=== PATIENT | male | born 1990 | race Caucasian/White ===

== ENCOUNTER 2019-05-17 21:03 | Emergency (ER) | payer SELFPAY ==
[~2019-05-17] VITALS: Ht 180.3 cm; Wt 77.1 kg
[2019-05-17 21:05] VITALS: BP 153/90
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
[2019-05-17 21:10] VITALS: BP 153/90
--- NOTE | 2019-05-17 21:15 | NUR ---
DR. WORLEY BEDSIDE EVALUATING PT
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
== END 2019-05-17 21:21 ==
LOC: MED 21:03
DX: Z13.9 Encounter for screening, unspecified (principal)
CPT/HCPCS: 99283